=== PATIENT | male | born 1950 | race African-American/Black ===

== ENCOUNTER → 2016-12-17 | Outpatient (CLI) | payer BC ==
[~2016-12-17] MED LIST: IOHEXOL 240 MG/ML 50ML VIAL. PO ONE
--- NOTE | 2016-12-17 16:35 | KCIC ---
CT Chest Abdomen Pelvis without Intravenous Contrast: History: Weight loss, cough. Comparison: None. Technique: After administration of oral contrast only, CT of the chest, abdomen, and pelvis was performed from the lung apices through the ischial tuberosities. No intravenous contrast was administered secondary to impaired renal function. Exposure: One or more of the following individualized dose reduction techniques were utilized for this examination: 1. Automated exposure control 2. Adjustment of the mA and/or kV according to patient size 3. Use of iterative reconstruction technique Findings: Evaluation of solid organs is limited by lack of intravenous contrast. No mediastinal lymphadenopathy is seen. Thyroid is symmetric. Trachea and mainstem bronchi appear patent. Mild thoracic aortic atherosclerosis is seen. Coronary artery calcifications are present. No pericardial thickening is identified. No cardiac chamber enlargement is seen. No renal disease of the chest is noted. Mild bilateral gynecomastia is present. Mild paraseptal emphysematous changes are present within both lungs. No pulmonary masses are identified. Small 3 mm soft tissue pulmonary nodule is seen in the right lower lobe (series 6 image 45). Several small soft tissue pulmonary nodules are seen in the left lower lobe measuring up to 4 mm (series 6 images 46 through 52). No acute airspace disease is seen. No pneumothorax or pleural effusion is identified. Liver, spleen, pancreas, and bilateral adrenal glands unremarkable. Cholelithiasis is seen. Inferior pole of the left kidney demonstrates a 3 mm nonobstructive nephrolith. Aortic atherosclerosis is seen. Urinary bladder is unremarkable. No free air free fluid is seen in the abdomen or pelvis. Appendix is without evidence of inflammation. No abdominal or pelvic lymphadenopathy is seen. Degenerative disc disease seen at L5-S1. Impression: 1. Mild paraseptal pulmonary emphysema. 2. Small nonspecific soft tissue pulmonary nodules measuring up to 4 mm stone. By Fleischner Society 2017 guidelines, consider follow-up chest CT without contrast in 12 months. 3. 3 mm nonobstructive left nephrolith. 4. No acute abnormality identified in the abdomen or pelvis. Electronically signed by: Saul Godoy MD (12/17/2016 4:32 PM) [place] [id number]
== END | disposition home or self-care (01) ==
LOC: KCIC CT 14:20
PROVIDERS: ATTEND Family Medicine
DX: J43.9 Emphysema, unspecified (principal); N20.0 Calculus of kidney
CPT/HCPCS: 71250; 74176; Q9966

== ENCOUNTER → 2018-07-26 | Outpatient (CLI) | payer BC, MEDICARE ==
--- NOTE | 2018-07-26 14:40 | KCIC ---
Ankle-brachial indices 07/26/2018 INDICATION: Right lower extremity pain COMPARISON STUDY: None FINDINGS: Right brachial pressure: 125 mmHg Left brachial pressure: 124 mmHg Right ankle pressure: 128 mmHg Left ankle pressure: 140 mmHg Right SUDHEER: 1 Left SUDHEER: 1.12 IMPRESSION: Normal ankle brachial indices Electronically signed by: Jose García MD (07/26/2018 2:37 PM) [id number]
== END | disposition home or self-care (01) ==
LOC: KCIC US 11:48
PROVIDERS: ATTEND Nurse Practitioner Gerontology
DX: M79.604 Pain in right leg (principal)
CPT/HCPCS: 93922

== ENCOUNTER → 2020-02-20 | Outpatient (CLI) | payer BC ==
--- NOTE | 2020-02-20 15:05 | KCIC ---
EXAM: Chest CT without intravenous contrast. HISTORY: Pulmonary nodule. Cigarette smoking. TECHNIQUE: Computed tomographic images of the chest were obtained without intravenous contrast. Multiplanar reformatting was performed. *One or more of the following individualized dose reduction techniques were utilized for this examination: 1. Automated exposure control. 2. Adjustment of the mA and/or kV according to patient size. 3. Use of iterative reconstruction technique. COMPARISON: 12/17/2016. FINDINGS: The heart is normal in size. There is calcified atherosclerotic plaque involving the aorta and coronary arteries. No pathologically enlarged lymph node is seen. There are left hilar calcified granulomas. There is no pneumothorax or pleural effusion. There is mild pulmonary emphysema with biapical subpleural bleb formation. There is linear scarring or atelectasis within the anterior medial right upper and middle lobes. There is minimal posterior dependent and basilar atelectasis. There is a stable 2 mm nodule within the posterior right lower lobe (series 6, image 126). There are stable tiny posterior left lower lobe nodular opacities, the largest of which measures 3 mm (series 6, image 124). There is a 4 mm nodule with central lucency within the posterior left lower lobe which is slightly more conspicuous compared to the prior study (series 6, image 134). There is a stable 4 mm pleural-based nodular opacity within the lateral left lower lobe (series 6, on image 139). There is no acute or suspicious finding involving the upper abdomen. There is no suspicious osseous lesion. There is a small focus of hyperdensity along the gallbladder wall which is likely due to slight wall calcification rather than a gallstone, stable in appearance. IMPRESSION: 1. No acute thoracic finding. 2. Mild pulmonary emphysema. 3. Tiny nodular opacities within both lungs, the largest of which measure 4 mm. There has been minimal interval increase in a 4 mm nodule within the posterior left lower lobe compared to the prior study. The imaging appearance and minimal interval slubber frame changer a 3 year interval favors benignity. Electronically signed by: Lilia Gatica MD (02/20/2020 3:02 PM) [id number]
== END ==
LOC: KCIC CT 12:22
PROVIDERS: ATTEND Nurse Practitioner Gerontology
DX: J98.11 Atelectasis (principal); R91.8 Other nonspecific abnormal finding of lung field; I70.0 Atherosclerosis of aorta; I25.10 Atherosclerotic heart disease of native coronary artery without angina pectoris; J43.9 Emphysema, unspecified
CPT/HCPCS: 71250